=== PATIENT | male | born 1970 | race Two or more races ===

== ENCOUNTER 2022-07-18 12:44 | Emergency (ER) | payer OTHER ==
[~2022-07-18] VITALS: Ht 175.3 cm; Wt 104.9 kg
[2022-07-18 19:07] VITALS: BP 111/63
[2022-07-18] MEDS ORDERED: TETRACAINE HCL 0.5% OPTH(EYE) SOLN 4ML LEFTEYE ONE (19:45)
[2022-07-18] MEDS ORDERED: FLUORESCEIN SOD OPTH TEST STRIP LEFTEYE ONE (19:45)
[2022-07-18] MEDS ORDERED: ERY05OO OP (20:46)
== END 2022-07-18 20:58 | disposition home or self-care (01) ==
LOC: ER 12:44
DX: S05.02XA Injury of conjunctiva and corneal abrasion without foreign body, left eye, initial encounter (principal); X58.XXXA Exposure to other specified factors, initial encounter; Y93.89 Activity, other specified; Y92.89 Other specified places as the place of occurrence of the external cause; Y99.8 Other external cause status